=== PATIENT | male | born 1945 | race Caucasian/White ===

== ENCOUNTER 2018-11-25 07:40 | Day surgery (SDC) | payer MEDICARE, OTHER ==
[~2018-11-25 07:40] MED LIST: BRIMONIDINE 0.2% OPHTH DROPS 5 ML ONE; BSS/LIDOCAINE/EPINEPHRINE 1 ML SYRINGE ONE; TIMOLOL 0.5% OPHTH DROPS ONE; TRIAMCIN/MOXIFLOX OPHTHALMIC 0.6 ML VIAL IO ONE; VANCOMYCIN OPHTHALMI 8MG/0.8ML 8 MG/0.8 ML SYRINGE IO ONE
[2018-11-25] MEDS ORDERED: fentaNYL 100 MCG/2 ML VIAL IVP ONE (07:41)
[2018-11-25] MEDS ORDERED: MIDAZOLAM 2 MG/2 ML VIAL IVP ONE (07:41)
[2018-11-25] MEDS ORDERED: KETOROLAC 0.45% OPHTH DROPS ONE (08:04)
[2018-11-25] MEDS ORDERED: CYCLOPENTOLATE 1% OPHTH DROPS 2 ML ONE (08:04)
[2018-11-25] MEDS ORDERED: PROPARACAINE 0.5% OPHTH DROPS 15 ML ONE (08:04)
[2018-11-25] MEDS ORDERED: PHENYLEPHRINE 2.5% OPHTH 2 ML DROPS ONE (08:04)
[2018-11-25] MEDS ORDERED: KETOROLAC 0.45% OPHTH DROPS LEFTEYE ONE (08:05)
[2018-11-25] MEDS ORDERED: CYCLOPENTOLATE 1% OPHTH DROPS 2 ML LEFTEYE ONE (08:05)
[2018-11-25] MEDS ORDERED: PHENYLEPHRINE 2.5% OPHTH 2 ML DROPS LEFTEYE ONE (08:05)
[2018-11-25] MEDS ORDERED: PROPARACAINE 0.5% OPHTH DROPS 15 ML LEFTEYE ONE (08:05)
[2018-11-25] MEDS ORDERED: LACTATED RINGERS 500 ML IV ONE (08:10)
--- NOTE | 2018-11-25 08:29 | ANESTHESIA ---
Pre-Anesthesia VS, & Labs - Diagnosis left senile combined cataract - Procedure left laser assisted cataract extraction with lens implant Vital Signs: Temp Pulse Resp BP Pulse Ox 36.2 C L 55 L 14 123/71 94 11/25/18 08:13 11/25/18 08:13 11/25/18 08:13 11/25/18 08:13 11/25/18 08:13 Height 5 ft 9 in Weight (kg) 101.3 kg - NPO >8 hours Home Medications and Allergies Home Medications: Ambulatory Orders Allopurinol [Zyloprim] 100 mg PO DAILY 11/25/18 Atorvastatin Calcium 80 mg PO DAILY 11/25/18 Fluticasone [Flonase] 1 sprays ALTAGRACIA DAILY 11/25/18 Telmisartan [Micardis] 20 mg PO DAILY 11/25/18 Allopurinol [Zyloprim] 100 mg PO DAILY 11/25/18 Atorvastatin Calcium 80 mg PO DAILY 11/25/18 Fluticasone [Flonase] 1 sprays ALTAGRACIA DAILY 11/25/18 Telmisartan [Micardis] 20 mg PO DAILY 11/25/18 Allergies/Adverse Reactions: Allergies Allergy/AdvReac Type Severity Reaction Status Date / Time No Known Drug Allergies Allergy Verified 11/25/18 08:10 Anes History & Medical History - Anesthetic History Anesthesia Complications: reports: No previous complications - Medical History Cardiovascular: reports: Hypertension, High cholesterol Pulmonary: reports: None Gastrointestinal: reports: None Urinary: reports: None Musculoskeletal: reports: Osteoarthritis, Gout Smoking Status: Former smoker - Surgical History General: Other Eyes Ears Nose Throat (EENT): Other Exam General: Alert Dental: WNL, Dentures full Upper, Dentures full Lower Mouth Opening: Greater than 4 Fingerbreadths Neck Mobility: Normal Mallampati classification: I Thyromental Distance: greater than 6 cm Respiratory: Lungs clear Cardiovascular: Regular rate, Normal S1, Normal S2 Mental/Cognitive Status: Alert/Oriented X3 Plan Anesthesia Type: MAC Consent for Procedure(s) Verified and Reviewed: Yes Code Status: Attempt Resuscitation ASA classification: 2-Mild systemic disease Is this case an emergency?: No
[2018-11-25] MEDS ORDERED: TIMOLOL 0.5% OPHTH DROPS OPTH ONE (09:45)
[2018-11-25] MEDS ORDERED: CHONDR SULF/HYALURONATE SYRINGE IO ONE (09:45)
[2018-11-25] MEDS ORDERED: BSS/LIDOCAINE/EPINEPHRINE 1 ML SYRINGE IO ONE (09:45)
[2018-11-25] MEDS ORDERED: EPINEPHrine 1 MG/ML AMP IVP ONE (09:45)
[2018-11-25] MEDS ORDERED: BRIMONIDINE 0.2% OPHTH DROPS 5 ML OPTH ONE (09:45)
[2018-11-25] MEDS ORDERED: VANCOMYCIN OPHTHALMI 8MG/0.8ML 8 MG/0.8 ML SYRINGE IO ONE (09:46)
[2018-11-25] MEDS ORDERED: TRIAMCIN/MOXIFLOX OPHTHALMIC 0.6 ML VIAL IO ONE (09:46)
[2018-11-25 10:15] VITALS: BP 118/67
--- NOTE | 2018-11-25 10:25 | OPERATIVE REPORT ---
DATE OF SERVICE: 11/25/2018 Physician: Deuce Prieto MD PREOPERATIVE DIAGNOSIS: Visually significant cataract, left eye. This was his first cataract surger y. POSTOPERATIVE DIAGNOSIS: Visually significant cataract, left eye. This was his first cataract surge ry. OPERATIVE PROCEDURE: Phacoemulsification with posterior chamber intraocular lens implant, left eye w ith laser assist. SURGEON: Deuce Prieto MD ANESTHESIA: Monitored anesthesia care. COMPLICATIONS: None. OPERATIVE INDICATIONS: This is a 73-year-old man with progressive vision loss in the left eye due to 3+ nuclear sclerotic cataract. Best corrected visual acuity was 20/30 with glare to 20/100 in the l eft eye. Indications for surgery were overall decrease in vision, difficulty seeing words on a compu ter screen, difficulty reading, difficulty seeing words, closed caption or game scores on TV, difficu lty seeing street signs and difficulty with glare or bright lights in any situation. He was consente d at length concerning risks and benefits of cataract surgery, after which he expressed a desire to p roceed with surgery. OPERATIVE PROCEDURE: The patient was taken to OR #3 and placed under monitored anesthesia care. Heather gical timeout was conducted confirming correct patient, correct procedure, and correct surgical site. He was placed on the LenSx laser and his eye was docked to the laser interface. The laser performe d the capsulotomy, lens softening, phaco wounds and arcuate keratotomy incisions. He was then moved to the operating microscope, given topical anesthesia, and prepped and draped in the usual sterile fa shion. The eye was entered at the 6 and 3 o'clock positions. Intracameral Shugarcaine was injected into the anterior chamber, followed by Viscoat. Capsulorrhexis flap created by the LenSx laser was r emoved from the anterior chamber. The nucleus was hydrodissected and phacoemulsified. The cortex wa s evacuated using automated infusion and aspiration. Provisc was injected in the capsular bag, and a n 18.5 diopter intraocular lens inserted in the bag. Approximately 0.8 mL of a mixture of triamcinol one, moxifloxacin and vancomycin was injected subconjunctivally in the superior quadrant for infectio n and inflammation prophylaxis. I and A, was used to evacuate the viscoelastic materials. The eye w as inflated to physiologic pressure using balanced salt solution and found to be watertight. The pat ient was taken from the operating room in good condition and given postoperative instructions. TD: 11/25/2018 10:12
== END 2018-11-25 07:41 | disposition home or self-care (01) ==
LOC: SDS 07:40
PROVIDERS: ATTEND Ophthalmology
PROC: 08RK3JZ Replacement of Left Lens with Synthetic Substitute, Percutaneous Approach (ICD-10-PCS; principal; 2018-11-25 09:00)
DX: H25.812 Combined forms of age-related cataract, left eye (principal); I10 Essential (primary) hypertension; E78.00 Pure hypercholesterolemia, unspecified; M19.90 Unspecified osteoarthritis, unspecified site; M10.9 Gout, unspecified; Z87.891 Personal history of nicotine dependence
CPT/HCPCS: 66984; A9270; J3490; V2632

== ENCOUNTER 2019-09-13 16:38 | Outpatient (CLI) | payer MEDICARE, OTHER | END 2019-09-13 16:39 | disposition home or self-care (01) | LOC: LAB 16:38 | PROVIDERS: ATTEND Ophthalmology | DX: Z01.812 Encounter for preprocedural laboratory examination (principal); H25.11 Age-related nuclear cataract, right eye; Z11.59 Encounter for screening for other viral diseases | CPT/HCPCS: 81599 ==

== ENCOUNTER 2019-09-15 07:17 | Day surgery (SDC) | payer MEDICARE, OTHER ==
[2019-09-15] MEDS ORDERED: PHENYLEPHRINE 2.5% OPHTH 2 ML DROPS ONE (07:18)
[2019-09-15] MEDS ORDERED: PROPARACAINE 0.5% OPHTH DROPS 15 ML ONE (07:18)
[2019-09-15] MEDS ORDERED: KETOROLAC 0.45% OPHTH DROPS ONE (07:18)
[2019-09-15] MEDS ORDERED: MIDAZOLAM 2 MG/2 ML VIAL IVP ONE (07:18)
[2019-09-15] MEDS ORDERED: fentaNYL 100 MCG/2 ML VIAL IVP ONE (07:18)
[2019-09-15] MEDS ORDERED: CYCLOPENTOLATE 1% OPHTH DROPS 2 ML ONE (07:18)
[2019-09-15] MEDS ORDERED: LACTATED RINGERS 500 ML IV ONE (07:33)
[2019-09-15] MEDS ORDERED: PHENYLEPHRINE 2.5% OPHTH 2 ML DROPS RIGHTEYE ONE (07:36)
[2019-09-15] MEDS ORDERED: KETOROLAC 0.45% OPHTH DROPS RIGHTEYE ONE (07:36)
[2019-09-15] MEDS ORDERED: PROPARACAINE 0.5% OPHTH DROPS 15 ML RIGHTEYE ONE ×2 (07:36→08:55)
[2019-09-15] MEDS ORDERED: CYCLOPENTOLATE 1% OPHTH DROPS 2 ML RIGHTEYE ONE (07:36)
--- NOTE | 2019-09-15 07:59 | ANESTHESIA ---
Pre-Anesthesia VS, & Labs - Diagnosis R nuclear sclerotic cataract - Procedure R laser assist extraction cataract w/IOL Vital Signs: Temp Pulse Resp BP Pulse Ox 36 C L 73 20 136/71 H 94 09/15/19 07:40 09/15/19 07:40 09/15/19 07:40 09/15/19 07:40 09/15/19 07:40 Height 5 ft 10 in Weight (kg) 111.2 kg - NPO >8 hours - Lab Results Current Lab Results: Laboratory Tests 09/15/19 07:47: POC Whole Bld Glucose 102 H Home Medications and Allergies Atorvastatin Calcium 80 mg PO DAILY 11/25/18 Fluticasone [Flonase] 1 sprays ALTAGRACIA DAILY 11/25/18 Telmisartan [Micardis] 20 mg PO DAILY 11/25/18 allopurinoL [Zyloprim] 100 mg PO DAILY 11/25/18 Allergies/Adverse Reactions: Allergies Allergy/AdvReac Type Severity Reaction Status Date / Time No Known Drug Allergies Allergy Verified 11/25/18 08:10 Anes History & Medical History - Anesthetic History Anesthesia Complications: reports: No previous complications Family history of Anesthesia Complications: Denies Family history of Malignant Hyperthermia: Denies - Medical History Cardiovascular: reports: High cholesterol Pulmonary: reports: None Gastrointestinal: reports: None Urinary: reports: Benign prostate hypertrophy Musculoskeletal: reports: Osteoarthritis Endocrine/Autoimmune: reports: None Skin: reports: Psoriasis, Rosacea Smoking Status: Former smoker - Surgical History General: Other Eyes Ears Nose Throat (EENT): Cataracts, Other Exam General: Alert, Oriented x3, Cooperative Dental: Dentures full Upper, Dentures full Lower Mouth Openin Fingerbreadth Neck Mobility: Normal Mallampati classification: II Thyromental Distance: greater than 6 cm Respiratory: Lungs clear, Normal breath sounds Cardiovascular: Regular rate Neurological: Normal speech Mental/Cognitive Status: Alert/Oriented X3, Normal for patient Cognitive Status: Within normal limits Plan Anesthesia Type: MAC Consent for Procedure(s) Verified and Reviewed: Yes Code Status: Attempt Resuscitation ASA classification: 2-Mild systemic disease Is this case an emergency?: No
[2019-09-15] MEDS ORDERED: TIMOLOL 0.25% OPHTH DROPS RIGHTEYE ONE (08:55)
[2019-09-15] MEDS ORDERED: BSS/LIDOCAINE/EPINEPHRINE 1 ML SYRINGE IO ONE (08:55)
[2019-09-15] MEDS ORDERED: EPINEPHrine 1 MG/ML AMP IR ONE (08:55)
[2019-09-15] MEDS ORDERED: VANCOMYCIN OPHTHALMI 8MG/0.8ML 8 MG/0.8 ML SYRINGE IO ONE (08:55)
[2019-09-15] MEDS ORDERED: TRIAMCIN/MOXIFLOX OPHTHALMIC 0.6 ML VIAL IO ONE (08:55)
[2019-09-15] MEDS ORDERED: CHONDR SULF/HYALURONATE SYRINGE IO ONE (08:55)
[2019-09-15] MEDS ORDERED: BRIMONIDINE 0.2% OPHTH DROPS 5 ML OPTH ONE (08:55)
[2019-09-15 09:52] VITALS: BP 122/50
--- NOTE | 2019-09-15 11:37 | OPERATIVE REPORT ---
DATE OF SERVICE: 09/15/2019 Physician: Deuce Prieto MD PREOPERATIVE DIAGNOSIS: Visually significant cataract, right eye. Cataract surgery was performed on the left eye on 11/25/2018. POSTOPERATIVE DIAGNOSIS: Visually significant cataract, right eye. Cataract surgery was performed o n the left eye on 11/25/2018. PROCEDURE: Phacoemulsification with posterior chamber intraocular lens implant, right eye with laser assist. SURGEON: Deuce Prieto MD ANESTHESIA: Monitored anesthesia care. COMPLICATIONS: None. OPERATIVE INDICATIONS: This is a 74-year-old man with progressive vision loss in the right eye due t o 3+ nuclear sclerotic cataract. Best corrected visual acuity was 20/40, with glare to 20/100 in the right eye. Indications for surgery are difficulty seeing words on a computer screen, difficulty manuel ding, difficulty seeing street signs. He was consented at length concerning risks and benefits of ca taract surgery, after which he expressed a desire to proceed with surgery. OPERATIVE PROCEDURE: The patient was taken to OR #3 and placed under monitored anesthesia care. A s urgical timeout was conducted confirming correct patient, correct procedure, and correct surgical sit e. He was placed on the LenSx laser and his eye was docked to the laser interface. The laser perfor med the capsulotomy, lens softening, phaco and arcuate keratotomy incisions. He was then moved to health system operating microscope, given topical anesthesia, and prepped and draped in the usual sterile fashion . The eye was entered at the 12 and 9 o'clock positions. Intracameral Shugarcaine was injected into the anterior chamber, followed by Viscoat. Capsulorrhexis flap created by the LenSx laser was remov ed from the anterior chamber. Nucleus was hydrodissected and phacoemulsified. The cortex was evacua nabil using automated infusion and aspiration. Provisc was injected in the capsular bag, and a 17.5 di opter intraocular lens inserted in the bag. Infusion and aspiration was used to evacuate the viscoel astic materials. The eye was inflated to physiologic pressure using balanced salt solution and found to be watertight. Approximately 0.25 mL of a mixture of triamcinolone and moxifloxacin was injected transsclerally into the vitreous in the inferotemporal quadrant. An additional 0.55 mL of a mixture of triamcinolone, moxifloxacin and vancomycin was injected subconjunctivally in the superior quadran t for infection and inflammation prophylaxis. Wound integrity was checked with Weck-Ilana sponges. Th e patient was taken from the Operating Room in good condition and given postoperative instructions. TD: 09/15/2019 09:51
== END 2019-09-15 07:18 | disposition home or self-care (01) ==
LOC: SDS 07:17
PROVIDERS: ATTEND Ophthalmology
DX: E11.36 Type 2 diabetes mellitus with diabetic cataract (principal); H25.11 Age-related nuclear cataract, right eye; I10 Essential (primary) hypertension; N40.0 Benign prostatic hyperplasia without lower urinary tract symptoms; Z87.891 Personal history of nicotine dependence; Z98.42 Cataract extraction status, left eye
CPT/HCPCS: 66984; A9270; J3490; V2632

== ENCOUNTER 2020-04-23 07:00 | Outpatient (CLI) | payer MEDICARE, OTHER | END 2020-04-23 23:59 | disposition home or self-care (01) | LOC: COV 07:00 | PROVIDERS: ATTEND Specialist | DX: Z01.812 Encounter for preprocedural laboratory examination (principal); Z20.822 Contact with and (suspected) exposure to COVID-19 ==

== ENCOUNTER 2020-05-14 07:00 | Outpatient (CLI) | payer MEDICARE, OTHER | END 2020-05-14 23:59 | disposition home or self-care (01) | LOC: COV 07:00 | PROVIDERS: ATTEND Specialist | DX: Z01.812 Encounter for preprocedural laboratory examination (principal); Z20.822 Contact with and (suspected) exposure to COVID-19 ==